=== PATIENT | male | born 1980 | race Caucasian/White ===

== ENCOUNTER 2021-12-19 03:11 | Emergency (ER) | payer SELFPAY ==
[~2021-12-19 03:11] MED LIST: IBUPROFEN800 MG PO; NORCO 5-325 TA1 EACH PO
[2021-12-19 03:42] LABS: BILIRUBIN NEGATIVE (NEGATIVE); BLOOD 3+ Ery/uL (NEGATIVE); CLARITY CLEAR (CLEAR); COLOR YELLOW (YELLOW); GLUCOSE (U) NORMAL (NORMAL); LEUKOCYTES TRACE Leu/uL (NEGATIVE); NITRITE NEGATIVE (NEGATIVE); PROTEIN NEGATIVE (NEGATIVE); SPECIFIC GRAVITY 1.015 (1.001-1.030); pH 7.5 (5.0-9.0)
[2021-12-19 04:00] LABS: SPERM PRESENT
[2021-12-19 04:05] LABS: BASOPHIL 0.9 % (0-2); EOSINOPHIL 1.2 % (0-5); HCT 41.5 % (42.0-52.0); HGB 14.6 g/dl (13.2-18.0); LYMPHOCYTE 31.2 % (15-48); MCH 31.9 pg (25.0-31.0); MCHC 35.2 g/dL (32.0-36.0); MCV 90.6 fL (78.0-100.0); MONOCYTE 8.2 % (0-12); MPV 9.3 fL (6.0-9.5); NEUTROPHIL 58.3 % (41-80); NRBC 0; PLT 249 K/uL (150-400); RBC 4.58 M/uL (4.70-6.00); RDW 12.5 % (11.5-14.0); WBC 9.2 K/uL (4.0-10.5)
[2021-12-19 04:38] LABS: ALBUMIN 3.6 g/dL (3.4-5.0); BILIRUBIN - TOTAL 0.5 mg/dL (0.2-1.0); BUN/CREAT RATIO (CALC) 10.9 RATIO; CREATININE 1.01 mg/dL (0.67-1.17); GLOBULIN (CALCULATION) 3.3 g/dL; POTASSIUM 3.7 mmol/L (3.5-5.1); TOTAL PROTEIN 6.9 g/dL (6.4-8.2)
[2021-12-19] MEDS ORDERED: NAPROXEN500 MG PO (05:05)
[2021-12-19] MEDS ORDERED: PERCOCET 5-3251 EACH PO ×2 (05:05→05:32)
[2021-12-19] MEDS ORDERED: FLOMAX0.4 MG PO (05:05)
[2021-12-19] MEDS ORDERED: ONDANSETRON ODT4 MG PO (05:33)
== END 2021-12-19 06:03 | disposition home or self-care (01) ==
LOC: FER 03:11
PROVIDERS: Internal Medicine
DX: N13.2 Hydronephrosis with renal and ureteral calculous obstruction (principal); Z28.310 Unvaccinated for COVID-19
CPT/HCPCS: 36415; 80053; 81001; 83605; 83690; 84145; 85025; C9113; J1170; J1885; J2405; J7120

== ENCOUNTER 2021-12-25 15:15 | Emergency (ER) | payer OTHER ==
[~2021-12-25 15:15] MED LIST changes: +FLOMAX0.4 MG PO; +NAPROXEN500 MG PO; +ONDANSETRON ODT4 MG PO; +PERCOCET 5-3251 EACH PO
[2021-12-25] MEDS ORDERED: NORCO 5-325 TA1 EACH PO (16:59)
[2021-12-25] MEDS ORDERED: OCUFLOX5 ML EYELF (16:59)
== END 2021-12-25 17:33 | disposition home or self-care (01) ==
LOC: FER 15:15
DX: T15.12XA Foreign body in conjunctival sac, left eye, initial encounter (principal); Z28.310 Unvaccinated for COVID-19